=== PATIENT | male | born 1935 | race Caucasian/White ===

== ENCOUNTER 2017-02-17 14:21 | Emergency (ER) | payer MEDICARE, OTHER ==
[2017-02-17 14:32] VITALS: BP 118/65; PULSE 54; RESP 16; TEMP 98.1; O2SAT 95
[2017-02-17] MEDS ORDERED: SIMV80TA PO (14:41)
[2017-02-17] MEDS ORDERED: LISI40TA PO (14:41)
[2017-02-17] MEDS ORDERED: WARF-58 PO (14:41)
[2017-02-17] MEDS ORDERED: LEXA20TA PO (14:41)
[2017-02-17] MEDS ORDERED: WARF4TAB51 PO (14:41)
[2017-02-17] MEDS ORDERED: FURO20TA PO (14:41)
[2017-02-17 14:44] VITALS: BP_SYST 111; BP_SYST 132; BP_SYST 93; BP_DIAS 56; BP_DIAS 60; BP_DIAS 82
[2017-02-17] MEDS ORDERED: ALLO300T2 PO (14:44)
[2017-02-17] MEDS ORDERED: COLC1CAP3 PO (14:44)
[2017-02-17 14:45] VITALS: O2SAT 95
[2017-02-17] MEDS ORDERED: SODIUM CHLORID 0.9% 500 ML INJ 500 ML IV ONE (14:45)
--- NOTE | 2017-02-17 14:50 | PD ---
HPI Chief Complaint: Syncope/Near-Syncope Time Seen by Provider: 14:40 Travel History International Travel<30 days: No Contact w/Intl Traveler<30days: No Traveled to known affect area: No History of Present Illness HPI 81-year-old male complains of lightheadedness when standing up. Patient was seen at [facility]. Patient was standing up and felt dizzy and systolic blood pressure was in the 80s. [facility] Patient came by EMS. Patient denies any headache. Patient denies any chest pain or shortness of breath. Patient denies abdominal pain. Patient denied any blood per stool. Patient denies any dysuria or frequency. Patient denies any fever chills. Patient has history of obstructive sleep apnea, CHF, gallops, DJD change, Ager fibrillation, benign essential hypertension, hypercholesterolemia, GERD and on Coumadin. Patient states that he has been eating well and drinking fluids well. Patient denies any alcohol or drug abuse. Patient states that no change in medication recently. PFSH Past Medical History Medical History: Denies Significant Hx Hx Anticoagulant Therapy: Yes Atrial Fibrillation: Yes Depression: Yes Cardiovascular Problems: Yes High Cholesterol: Yes Gout: Yes Hypertension: Yes Social History Alcohol Use: No Tobacco Use: No Substance Use: No Allergies-Medications (Allergen,Severity, Reaction): Coded Allergies: No Known Allergies (Unverified , 02/17/17) Reported Meds & Prescriptions Reported Meds & Active Scripts Active Reported Colchicine 0.6 Mg Cap 0.6 Mg PO DIRECTED PRN Allopurinol 300 Mg Tab 300 Mg PO DAILY Warfarin 2 Mg Tab 2 Mg PO WEDNESDAY Warfarin 3 Mg Tab 3 Mg PO ,,,,SA,YOUSIF Lexapro (Escitalopram Oxalate) 20 Mg Tab 20 Mg PO DAILY Simvastatin 80 Mg Tab 40 Mg PO HS Lisinopril 40 Mg Tab 40 Mg PO DAILY Furosemide 20 Mg Tab 20 Mg PO DAILY Review of Systems General / Constitutional: No: Fever Eyes: No: Visual changes HENT: No: Headaches Cardiovascular: No: Chest Pain or Discomfort Respiratory: No: Shortness of Breath Gastrointestinal: No: Abdominal Pain Genitourinary: No: Dysuria Musculoskeletal: No: Pain Skin: No Rash Neurologic: No: Weakness Psychiatric: No: Depression Endocrine: No: Polydipsia Hematologic/Lymphatic: No: Easy Bruising Physical Exam Narrative GENERAL: Well-nourished, well-developed patient. SKIN: Focused skin assessment warm/dry. HEAD: Normocephalic. EYES: No scleral icterus. No injection or drainage. NECK: Supple, trachea midline. No JVD or lymphadenopathy. CARDIOVASCULAR: Regular rate and rhythm without murmurs, gallops, or rubs. RESPIRATORY: Breath sounds equal bilaterally. No accessory muscle use. GASTROINTESTINAL: Abdomen soft, non-tender, nondistended. Rectal exam Hemoccult negative. MUSCULOSKELETAL: No cyanosis, or edema. BACK: Nontender without obvious deformity. No CVA tenderness. Neurologic exam: Patient's awake and alert oriented 3. No obvious focal neurological deficit. Data Data Last Documented VS Vital Signs Date Time Temp Pulse Resp B/P Pulse Ox O2 Delivery O2 Flow Rate FiO2 02/17/17 14:45 95 Room Air 02/17/17 14:44 59 132/82 62 111/56 66 93/60 02/17/17 14:32 98.1 16 Orders Electrocardiogram (02/17/17 14:40) Complete Blood Count With Diff (02/17/17 14:40) Comprehensive Metabolic Panel (02/17/17 14:40) B-Type Natriuretic Peptide (02/17/17 14:40) Prothrombin Time / Inr (Pt) (02/17/17 14:40) Act Partial Throm Time (Ptt) (02/17/17 14:40) Urinalysis - C+S If Indicated (02/17/17 14:40) Thyroid Stimulating Hormone (02/17/17 14:40) Chest, Single Ap (02/17/17 14:40) Iv Access Insert/Monitor (02/17/17 14:40) Ecg Monitoring (02/17/17 14:40) Oximetry (02/17/17 14:40) Sodium Chlorid 0.9% 500 Ml Inj (Ns 500 M (02/17/17 14:45) Labs Laboratory Tests Test 02/17/17 14:40 White Blood Count 6.8 TH/MM3 Red Blood Count 4.88 MIL/MM3 Hemoglobin 13.3 GM/DL Hematocrit 40.4 % Mean Corpuscular Volume 82.7 FL Mean Corpuscular Hemoglobin 27.1 PG Mean Corpuscular Hemoglobin 32.8 % Concent Red Cell Distribution Width 18.6 % Platelet Count 165 TH/MM3 Mean Platelet Volume 7.9 FL Neutrophils (%) (Auto) 73.6 % Lymphocytes (%) (Auto) 16.0 % Monocytes (%) (Auto) 8.6 % Eosinophils (%) (Auto) 1.0 % Basophils (%) (Auto) 0.8 % Neutrophils # (Auto) 5.0 TH/MM3 Lymphocytes # (Auto) 1.1 TH/MM3 Monocytes # (Auto) 0.6 TH/MM3 Eosinophils # (Auto) 0.1 TH/MM3 Basophils # (Auto) 0.1 TH/MM3 CBC Comment DIFF FINAL Differential Comment Prothrombin Time 34.8 SEC Prothromb Time International 3.0 RATIO Ratio Activated Partial 37.0 SEC Thromboplast Time Sodium Level 141 MEQ/L Potassium Level 3.9 MEQ/L Chloride Level 104 MEQ/L Carbon Dioxide Level 26.8 MEQ/L Anion Gap 10 MEQ/L Blood Urea Nitrogen 24 MG/DL Creatinine 1.52 MG/DL Estimat Glomerular Filtration 44 ML/MIN Rate Random Glucose 122 MG/DL Calcium Level 8.7 MG/DL Total Bilirubin 0.5 MG/DL Aspartate Amino Transf 19 U/L (AST/SGOT) Alanine Aminotransferase 20 U/L (ALT/SGPT) Alkaline Phosphatase 34 U/L B-Type Natriuretic Peptide 156 PG/ML Total Protein 6.9 GM/DL Albumin 3.5 GM/DL Thyroid Stimulating Hormone 1.010 uIU/ML [address] [place] [address] Medical Decision Making Medical Screen Exam Complete: Yes Emergency Medical Condition: Yes Interpretation(s) Last Impressions Chest X-Ray 02/17/17 1440 Signed Impressions: Service Date/Time: Friday, February 17, 2017 14:48 - CONCLUSION: Normal examination. Lyle Burns MD 1555 PM. CBC within normal limit. BUN 24. Creatinine 1.52. GFR 44. BNP 156. INR 3.0. Differential Diagnosis Differential diagnosis including Dehydration, electrolyte abdomen mildly, anemia , GI bleed. Narrative Course 81-year-old male with orthostatic hypotension. Normal saline solution 500 cc IV bolus. Patient no longer orthostatic after IV fluid. Patient can be discharged home. Diagnosis Primary Impression: Dehydration Additional Impression: Renal insufficiency Patient Instructions: General Instructions Additional Instructions: Encourage by mouth fluid. Follow-up with personal physician. Return as needed. Med/Other Pt SpecificInfo: No Change to Meds Disposition: 01 DISCHARGE HOME Condition: Stable Jose Maria Pratt MD Feb 17, 2017 14:49
--- NOTE | 2017-02-17 15:08 | RADRPT ---
EXAM DATE/TIME: 02/17/2017 14:48 [facility] COMPARISON: No previous studies available for comparison. INDICATIONS : Dizzy MEDICAL HISTORY : None. SURGICAL HISTORY : None. ENCOUNTER: Initial ACUITY: 1 day PAIN SCORE: 0/10 LOCATION: Bilateral chest FINDINGS: A single view of the chest demonstrates the lungs to be symmetrically aerated without evidence of mas s, infiltrate or effusion. The cardiomediastinal contours are unremarkable. Osseous structures are intact. CONCLUSION: Normal examination. Lyle Burns MD on February 17, 2017 at 15:07 Board Certified Radiologist. This report was verified electronically.
[2017-02-17 15:09] LABS: BASOPHIL # 0.1 TH/MM3 (0-0.2); BASOPHIL % 0.8 % (0.0-2.0); EOSINOPHIL # 0.1 TH/MM3 (0-0.4); HEMATOCRIT 40.4 % (39.0-51.0); HEMO FLAGS DIFF FINAL; LYMPHOCYTE # 1.1 TH/MM3 (1.0-4.8); MEAN CELL VOLUME 82.7 FL (80.0-100.0); MEAN CORPUSCULAR HEMOGLOBIN 27.1 PG (27.0-34.0); MEAN CORPUSCULAR HGB CONC 32.8 % (32.0-36.0); MONO % 8.6 % (0.0-8.0); NEUT % 73.6 % (16.0-70.0); PLATELET COUNT 165 TH/MM3 (150-450); RED BLOOD COUNT 4.88 MIL/MM3 (4.50-5.90); RED CELL DISTRIBUTION WIDTH 18.6 % (11.6-17.2); WHITE BLOOD COUNT 6.8 TH/MM3 (4.0-11.0)
[2017-02-17 15:18] LABS: PROTHROMBIN TIME - PATIENT 34.8 SEC (9.8-11.6)
[2017-02-17 15:25] LABS: ALT (GPT) 20 U/L (12-78); ANION GAP 10 MEQ/L (5-15); AST (GOT) 19 U/L (15-37); BICARBONATE 26.8 MEQ/L (21.0-32.0); BLOOD UREA NITROGEN 24 MG/DL (7-18); CHLORIDE 104 MEQ/L (98-107); GLOMERULAR FILTRATION RATE 44 ML/MIN (>89); POTASSIUM 3.9 MEQ/L (3.5-5.1); SODIUM (NA) 141 MEQ/L (136-145)
[2017-02-17 15:35] LABS: ALKALINE PHOSPHATASE 34 U/L (45-117); TOTAL BILIRUBIN ADULT 0.5 MG/DL (0.2-1.0)
[2017-02-17 16:52] VITALS: BP 143/75
--- NOTE | 2017-02-18 15:25 | EKG ---
Date Performed: 02/17/2017 Time Performed: 15:08:33 PTAGE: 81 years EKG: ATRIAL FIBRILLATION WITH SLOW VENTRICULAR RESPONSE MARKED LEFT AXIS DEVIATION POSSIBLE LEFT VENTRICULAR HYPERTROPHY NONSPECIFIC ST & T-WAVE ABNORMALITY PROLONGED QT INTERVAL ABNORMAL ECG PREVIOUS TRACING : 02/17/2017 15.04 DOCTOR: Leonor Patterson Interpretating Date/Time 02/22/2017 12:42:58
== END 2017-02-17 17:50 | disposition home or self-care (01) ==
LOC: NEPC 14:21
DX: E86.0 Dehydration (principal); N28.9 Disorder of kidney and ureter, unspecified; I48.91 Unspecified atrial fibrillation; F32.9 Major depressive disorder, single episode, unspecified; E78.00 Pure hypercholesterolemia, unspecified; M10.9 Gout, unspecified; I10 Essential (primary) hypertension; I50.9 Heart failure, unspecified; K21.9 Gastro-esophageal reflux disease without esophagitis
CPT/HCPCS: 71010; 80053; 83880; 84443; 85025; 85610; 85730; 93005; 99285; J7040